=== PATIENT | female | born 1950 | race Caucasian/White ===

== ENCOUNTER 2022-10-16 11:55 | Observation (INO) | payer OTHER, BC ==
[2022-10-16 12:58] LABS: SARS-CoV-2 Antigen Rapid Res Negative (Negative)
--- OUTSIDE RECORDS SUMMARY | 2022-10-16 13:53 | XMS REPORT | Continuity of Care Document ---
:[address] [facility] t Address [address] [place] [address] [place] [address] Care Team Providers Name Role Phone Katherin Acevedo Attending Clinician KATHERIN MARLEY Attending Clinician Unavailable Payers Payer Name Policy Type Policy Number Effective Date Expiration Date S ource Problems Condition Condition Condition Status Onset Resolution Last Treating Co mments Source Name Details Category Date Date Treatment Clinician Date No known No known Disease Unive rs active active ity of problems problems [facility] Allergies, Adverse Reactions, Alerts Allergy Allergy Status Severity Reaction(s) Onset Inactive Treating Comm ents Source Name Type Date Date Clinician Morphine Propensi Active Itching 2019-11 Unive rs ty to 2-08 ity of adverse 00:00: [place] reaction 00 Medical s Branch SULFA Drug Active ITCHING 2019- Univers (SULFONA Class 2-08 ity of MIDE 00:00: [place] ANTIBIOT 00 Medical ICS) Branch MORPHINE DRUG Active ITCHING 2019-11 Univers INGREDI 2-08 ity of 00:00: [place] 00 Medical Branch Sulfa Propensi Active Itching 2019-1 Univers (Sulfona ty to 2-08 ity of mide adverse 00:00: [place] Antibiot reaction 00 Medica l ics) s Branch NO KNOWN Drug Active Univers ALLERGIE Class ity of S [facility] Social History Social Habit Start Date Stop Date Quantity Comments Source Sex Assigned At Uni versity [facility] Exposure to SARS-CoV-2 Not sure [facility] [place] (event) [facility] Smoking Status Start Date Stop Date Source Unknown if ever smoked Universit y [facility] Medications Ordered Filled Start Stop Current Ordering Indication Dosage Frequency Signature Comments Components Source Medication Medication Date Date Medication? Clinician (SIG) Name Name mupirocin 2 2019-11 Yes [id number] Apply to Univers % ointment 2-08 area(s) 3 ity of 00:00: (three) [place] 00 times Medical daily. Branch doxycycline 2019-11 2020- No [id number] 100mg Take 1 Univers hyclate 100 12-17 capsule by i ty of mg capsule 00:00: 05:59 mouth 2 Raúl as 00 :00 (two) Medical times L[place] daily for 7 days. Vital Signs Vital Name Observation Time Observation Value Comments Source Systolic blood 2020-10-17 00:57:00 138 mm[Hg] Univer sity of pressure [facility] Diastolic blood 2020-10-17 00:57:00 67 mm[Hg] Unive rsity of [facility] Heart rate 2020-10-17 00:57:00 77 /min [facility] Body temperature 2020-10-17 00:57:00 36.89 Est[facility] Res[facility] rate 2020-10-17 00:57:00 18 /min [facility] Body height 2020-10-17 00:57:00 157.5 cm [facility] Body weight 2020-10-17 00:57:00 60.328 kg [facility] BMI 2020-10-17 00:57:00 24.33 kg/m2 [facility] Oxygen saturation in 2020-10-17 00:57:00 98 /min [facility] Arterial blood by [facility] Pulse oximetry [place] Procedures This patient has no known procedures. Encounters Start End Encounter Admission Attending Care Care Encounter Source Date/Time Date/Time Type Type Clinicians Facility Department ID 2020-10-16 2020-10-16 Emergency [facility] [id number] Univers 18:59:00 19:52:00 Katherin Vela [id number] i ty of [place] [id number] [facility] [id number] [facility] 084 Branch 2020-10-16 2020-10-16 Emergency X [facility] ERT [id number] Univers 18:36:00 18:36:00 KATHERIN denny [facility] Results This patient has no known results.
[2022-10-16 14:23] VITALS: BMI 25.2
[2022-10-16] MEDS ORDERED: ALBUTEROL 2.5 MG/3 ML NEB SOL IH PRN (14:55)
[2022-10-16] MEDS ORDERED: NACHLORIDE 0.45% 1,000 ML IV SCH (15:00)
[2022-10-16] MEDS ORDERED: ONDANSETRON 4 MG (ODT) TAB PO PRN (15:00)
[2022-10-16] MEDS ORDERED: POLYETHYL GLY 3350 17 GM/DOSE PO PRN (15:00)
[2022-10-16] MEDS ORDERED: PNEUMOCOCCAL VACCINE 0.5 ML IMVAC ONE (15:00)
[2022-10-16] MEDS ORDERED: DIPHENHYDRAMINE 25 MG TAB/CAP PO PRN (15:00)
[2022-10-16] MEDS ORDERED: LOPERAMIDE HCL 2 MG CAPSULE PO PRN (15:00)
[2022-10-16] MEDS ORDERED: INFLUENZA VACCINE (for 6+ mo) 0.5 ML DOSE IMVAC ONE (15:00)
[2022-10-16] MEDS ORDERED: ACETAMINOPHEN 325 MG TABLET PO PRN (15:00)
[2022-10-16] MEDS ORDERED: ONDANSETRON 4 MG/2 ML VIAL IV PRN (15:00)
[2022-10-16] MEDS ORDERED: LORazepam 2 MG/ML VIAL IV ONE (15:35)
[2022-10-16] MEDS: ENOXAPARIN 40 MG/0.4 ML SQ SCH (15:38)
[2022-10-16] MEDS: METHYLPREDNISOLONE 40 MG INJ IV SCH ×2 (15:38→22:55)
[2022-10-16 16:00] LABS: Absolute Lymphocytes (CBC) 2.5 K/uL (0.7-4.9); Hematocrit 42.3 % (36.0-45.0); Lymphocytes % 34.1 % (15.3-44.8); MCV 96.2 fL (80-100); MPV 5.8 fL (7.6-11.3)
[2022-10-16 16:06] LABS: Protime INR 1.09
[2022-10-16 16:12] LABS: Specific Gravity < 1.005 (1.005-1.030); Urine Bilirubin NEGATIVE (Negative); Urine Blood Negative (Negative); Urine Clarity Clear (Clear); Urine Color Colorless (Yellow); Urine Glucose NEGATIVE (Negative); Urine Protein NEGATIVE (Negative); Urine Urobilinogen Normal (Normal)
--- NOTE | 2022-10-16 16:19 | RAD REPORT ---
EXAM DESCRIPTION: RAD - Chest Pa And Lat (2 Views) - 10/16/2022 4:11 pm CLINICAL HISTORY: dyspnea, pneumonia Chest pain. COMPARISON: Chest Pa And Lat (2 Views) dated 10/14/2022 FINDINGS: Mild linear opacities in both lung bases, appearing unchanged since comparative study. Thi s may represent atelectasis or infiltrate. The heart is normal in size.
--- NOTE | 2022-10-16 16:37 | RAD REPORT ---
EXAM DESCRIPTION: CT - Chest For Pe Angio - 10/16/2022 4:19 pm CLINICAL HISTORY: Chest pain. Pneumonia, dyspnea, veritgo COMPARISON: No comparisons TECHNIQUE: CT angiogram of the pulmonary arteries was performed with MIP. All CT scans are performed using dose optimization technique as appropriate and may include automated exposure control or mA/KV adjustment according to patient size. FINDINGS: No evidence of pulmonary thromboembolism. No acute aortic finding demonstrated. The lungs appear mildly emphysematous. Hazy right middle lobe lung opacity is present which may repre sent atelectasis or scarring. No significant pericardial or pleural fluid. No concerning bony finding. IMPRESSION: No evidence of pulmonary thromboembolism. Mild linear opacities in the right middle lobe probably atelectasis or scarring.
[2022-10-16 16:42] LABS: ALT/SGPT 30 U/L (13-56); AST/SGOT 17 U/L (15-37); Albumin 3.2 g/dL (3.4-5.0); Alkaline Phosphatase 75 U/L (45-117); BUN Blood Urea Nitrogen 15 mg/dL (7-18); Bicarbonate 28 mmol/L (21-32); Bilirubin Total 0.3 mg/dL (0.2-1.0); Glomerular Filtration Rate 74 ml/min (=/>90); Glucose Level 115 mg/dL (74-106); Magnesium 2.2 mg/dL (1.6-2.4); Phosphorus 3.8 mg/dL (2.5-4.9); Protein, Total 6.7 g/dL (6.4-8.2); Sodium Level 131 mmol/L (136-145)
[2022-10-16 16:44] LABS: Bilirubin Direct < 0.1 mg/dL (0-0.2)
--- NOTE | 2022-10-16 17:23 | RAD REPORT ---
EXAM DESCRIPTION: MRI - Brain W/Wo Cont - 10/16/2022 5:09 pm CLINICAL HISTORY: vertigo Headache, drowsiness COMPARISON: Sinus 3/+ Views dated 10/14/2022; Iac W And Wo Cont dated 08/27/2021 TECHNIQUE: Multi-sequence, multiplanar MR imaging of the brain was performed with contrast. FINDINGS: No intracranial hemorrhage, hydrocephalus, or extra-axial fluid collection.Moderate perive ntricular and deep white matter chronic microvascular ischemic changes are present. No edema or shift of midline structures. No intracranial mass. DWI is negative for acute CVA. The midline structures are normally formed. Mastoid air cells and paranasal sinuses are clear. Post-contrast images show no abnormal enhancement to suggest tumor or infection. IMPRESSION: No acute or aggressive intracranial abnormalities. No pathologic process identified. No pathologic post-contrast enhancement suspected.
[2022-10-16] MEDS: LEVALBUTEROL 1.25 MG/3 ML NEB IH SCH (20:50)
[2022-10-16] MEDS: IPRATROPIUM BROM 0.5MG/2.5ML IH SCH (20:50)
[2022-10-16] MEDS ORDERED: Meropenem 1,000 MG in NA CHLORIDE 0.9% 100 ML IV SCH (21:00)
[2022-10-16] MEDS ORDERED: METHYLPRED NA SUC 1,000 MG in NA CHLORIDE 0.9% 100 ML IV SCH (21:00)
[2022-10-16] MEDS: Meropenem 1,000 MG in NA CHLORIDE 0.9% 100 ML IV SCH (22:54)
[2022-10-17] MEDS: LEVALBUTEROL 1.25 MG/3 ML NEB IH SCH ×3 (02:15→14:00)
[2022-10-17] MEDS: IPRATROPIUM BROM 0.5MG/2.5ML IH SCH ×3 (02:15→14:00)
[2022-10-17 04:07] LABS: Absolute Lymphocytes (CBC) 0.5 K/uL (0.7-4.9); Hematocrit 42.4 % (36.0-45.0); Lymphocytes % 14.2 % (15.3-44.8); MCV 95.3 fL (80-100); MPV 6.1 fL (7.6-11.3); RBC Red Blood Cell Count 4.45 M/uL (3.86-4.86)
[2022-10-17 04:26] LABS: Magnesium 2.3 mg/dL (1.6-2.4)
[2022-10-17] MEDS: Meropenem 1,000 MG in NA CHLORIDE 0.9% 100 ML IV SCH (08:09)
[2022-10-17] MEDS: ENOXAPARIN 40 MG/0.4 ML SQ SCH (08:10)
[2022-10-17] MEDS: METHYLPREDNISOLONE 40 MG INJ IV SCH (08:11)
[2022-10-17] MEDS ORDERED: THYROID PORK 120 MG PO SCH (09:00)
[2022-10-17] MEDS ORDERED: ASPIRIN 81 MG CHEWABLE TABLET PO SCH (09:00)
[2022-10-17] MEDS ORDERED: ATORVASTATIN 10 MG TAB PO SCH (09:00)
[2022-10-17] MEDS ORDERED: ESCITALOPRAM 20 MG TAB PO SCH (09:00)
[2022-10-17 11:50] VITALS: BP 131/60; TEMP 98.3
[2022-10-17 14:43] VITALS: O2SAT 95
--- NOTE | 2022-10-20 15:07 | EKG ---
Test Date: 2022-10-17 Test Time: 09:43:50 [employer] Analysis Technician: CHLOE MEASUREMENT RESULTS: Intervals: Rate: 96 OK: 178 QRSD: 108 QT: 380 QTc: 480 [place]: P: 45 OK: 178 QRS: -2 T: 143 INTERPRETIVE STATEMENTS: Normal sinus rhythm Anterolateral infarct, age undetermined Abnormal ECG No previous ECG available for comparison Electronically Signed On 10-20-22 14:59:11 UI PROGRAMMER by Colton Fuentes
== END 2022-10-17 14:07 | disposition home or self-care (01) ==
LOC: 2ND 13:48
PROVIDERS: ADMIT Internal Medicine; ATTEND Internal Medicine
DX: J15.9 Unspecified bacterial pneumonia (principal); R06.00 Dyspnea, unspecified; R05.9 Cough, unspecified; R42 Dizziness and giddiness; I10 Essential (primary) hypertension; E03.9 Hypothyroidism, unspecified; E78.5 Hyperlipidemia, unspecified; Z20.822 Contact with and (suspected) exposure to COVID-19; Z88.6 Allergy status to analgesic agent; Z88.2 Allergy status to sulfonamides
CPT/HCPCS: 93005; 87088; 85025 ×2; 87086; 80048 ×2; 36415; 83735 ×2; 84100; 85610; 80076; 85730; 84443; 81003; 82607; 82306; 71275; 71046; 70553; 94640; 87811; Q9967; A9577; J7614 ×4; J7644 ×4; J1650 ×2; J2185 ×2; J2920 ×3; G0379; G0378 ×2